=== PATIENT | female | born 1980 | race American Indian/Alaskan Native ===

== ENCOUNTER 2020-11-17 06:51 | Day surgery (SDC) | payer OTHER ==
--- NOTE | 2020-11-16 22:23 | Short Stay Summary ---
Short Stay Documentation Date of service: 11/17/20 Narrative H&P: 40y/o presents with dysfunctional uterine bleeding. 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 the patient has been unresponsive to medical management. Endometrial biopsy was benign. Patient has been reassessed/reevaluated/re-examined. H&P has been reviewed. No interval changes. - History Principal diagnosis: Dysfunctional uterine bleeding Past Medical History: No medical history Past Surgical History: , Other (back surgery; oophorectomy; tubal ligation) Social history: single - Allergies and Medications Current Medications: Allergies No Known Allergies Allergy (Verified 11/09/20 11:12) - Physical exam General appearance: no acute distress Integumentary: no rash HEENT: Atraumatic Lungs: Clear to auscultation Breasts: deferred Heart: Regular rate Gastrointestinal: normal Female Genitourinary: deferred Rectal Exam: deferred Extremities: no ischemia - Brief post op/procedure progress note Date of procedure: 11/17/20 Pre-op diagnosis: Dysfunctional uterine bleeding Post-op diagnosis: same Procedure: Hysteroscopy Endometrial ablation via NovaSure Anesthesia: MAC Surgeon: MARLEE BERG Estimated blood loss: minimal Pathology: none Condition: stable - Hospital course Hospital course: The patient was admitted the day of surgery underwent endometrial ablation. Please see operative note for details of surgery. Postoperative course was uneventful. - Disposition Condition at discharge: Good Disposition: DC-01 TO HOME OR SELFCARE Short Stay Discharge Plan Activity: other (Pelvic rest for 1 week) Diet: regular Additional Instructions: Follow-up with Dr. Berg in 4 weeks Prescriptions: Ibuprofen [Motrin] 800 mg PO Q8HR PRN #30 tablet PRN Reason: Pain , Severe (7-10) HYDROcodone/APAP 5-325 [H[place]hey 5/325] 1 each PO Q6HR PRN #15 tablet PRN Reason: Pain
[2020-11-17] MEDS ORDERED: HYDROmorphone 1 MG/1 ML INJ IV PRN (08:02)
--- NOTE | 2020-11-17 08:03 | Anesthesia Day of Surgery ---
Anesthesia Day of Surgery - Day of Surgery Patient Examined: Yes Patient H&P Reviewed: Yes Patient is NPO: Yes
--- NOTE | 2020-11-17 08:06 | Anesthesia Consultation ---
Anesthesia Consult and Med Hx Date of service: 11/17/20 - Airway Anesthetic Teeth Evaluation: Good, Dentures, Edentulous (Upper) ROM Head & Neck: Adequate (Has posterior cervical fusion-good ROM) Mental/Hyoid Distance: Adequate Mallampati Class: Class II Intubation Access Assessment: Good - Pre-Operative Health Status ASA Pre-Surgery Classification: ASA2 Proposed Anesthetic Plan: General - Pulmonary Hx Smoking: Yes (MJ) Hx Respiratory Symptoms: No (+2FS) - Cardiovascular System Hx Coronary Artery Disease: No (Had ETT 2017; Had CP and was from anxiety) - Central Nervous System Hx Psychiatric Problems: Yes (Anxiety/Depression) - Gastrointestinal Hx Gastroesophageal Reflux Disease: No - Endocrine Hx Non-Insulin Dependent Diabetes: No Hx Thyroid Disease: No - Hematic Hx Sickle Cell Disease: No - Other Systems Hx Substance Use: Yes (MARIJUANA) Hx Cancer: No
[2020-11-17] MEDS ORDERED: ONDANSETRON 4 MG/2 ML INJ IV PRN (08:30)
[2020-11-17] MEDS ORDERED: LACTATED RINGERS 1,000 ML IV SCH (08:30)
[2020-11-17] MEDS ORDERED: MIDAZOLAM 2 MG/2 ML INJ ONE (08:34)
[2020-11-17] MEDS ORDERED: dexAMETHasone 20 MG/5 ML VIAL ONE (08:38)
[2020-11-17] MEDS ORDERED: ONDANSETRON 4 MG/2 ML INJ ONE (08:38)
[2020-11-17] MEDS ORDERED: fentaNYL 100 MCG/2 ML INJ ONE (08:38)
[2020-11-17] MEDS ORDERED: propofoL 200 MG/20 ML VIAL IV ONE (08:38)
[2020-11-17] MEDS ORDERED: LIDOCAINE MPF (2%) 20 MG/1 ML VIAL 5 ML ONE (08:38)
[2020-11-17] MEDS ORDERED: SILVER NITRATE APPLICATOR 1 EA TP ONE (08:42)
[2020-11-17] MEDS ORDERED: SODIUM CHLORIDE 0.9% IRRIG SOLN 2000 ML IR ONE (09:45)
--- NOTE | 2020-11-17 10:03 | Operative Report ---
Operative Report Operative Report: Date of procedure: November 17, 2020 Pre-operative diagnosis: Dysfunctional uterine bleeding Post-operative diagnosis: Same as above Procedure name(s): Hysteroscopy; endometrial ablation via NovaSure Surgeon: Heather Laguna M.D. Shipwright Supervisor: None Anesthesia: MAC Findings normal endometrial cavity Indication: 40-year-old -3-1-4 with a history of dysfunctional uterine bleeding. The place is elected to undergo surgical management. Procedure The patient was taken to the operating room and given general tracheal anesthesia without complication. The patient was prepped and draped in a normal sterile fashion. A bivalve speculum was placed in the patient's vagina single- tooth tenaculums placed on the anterior lip of the cervix. The cervical os was dilated with graduated dilators. A uterine sound was inserted. The hysteroscope was then placed. Insufflation of the uterine cavity was performed with normal saline. Gen. survey of the uterine cavity revealed normal endometrial cavity. The hysteroscope was then removed. The NovaSure device was then inserted. The endometrial length was 6 cm and the uterine width was 4 cm. The device was engaged and it passed the surveillance of the uterine cavity. The NovaSure device was then deployed with a energy of 132 W that lasted for 50 seconds. The NovaSure device was then removed. The hysteroscope was again reinserted. There was evidence of charring of the endometrial surface. The remainder of the vaginal instruments were then removed atraumatically. The patient was then successfully extubated taken to the recovery room. All sponge laps and needle counts were correct 2.
[2020-11-17] MEDS: HYDROmorphone 1 MG/1 ML INJ IV PRN ×2 (10:10→10:20)
[2020-11-17] MEDS ORDERED: KETOROLAC 30 MG/1 ML INJ ONE (10:19)
[2020-11-17] MEDS ORDERED: KETOROLAC 30 MG/1 ML INJ IV ONE (10:25)
[2020-11-17] MEDS ORDERED: HYDROcodone/ACETAMINOPHEN 5-325 MG TAB PO PRN (10:30)
[2020-11-17 10:58] VITALS: BP 133/85
--- NOTE | 2020-11-17 15:42 | Post Anesthesia Evaluation ---
- Post Anesthesia Evaluation Patient Participated: Yes Airway Patent: Yes Stable Respiratory Function: Yes Nausea/Vomiting: No Temp > 96.8F: Yes Pain Manageable: Yes Adequeate Hydration: Yes Anesthesia Complications: No Block Receding Appropriately: Not Applicable Patient on Ventilator: No
== END 2020-11-17 11:30 | disposition home or self-care (01) ==
LOC: OR 06:51
PROVIDERS: ATTEND Obstetrics & Gynecology
DX: N93.8 Other specified abnormal uterine and vaginal bleeding (principal); M19.90 Unspecified osteoarthritis, unspecified site; F32.9 Major depressive disorder, single episode, unspecified; F41.9 Anxiety disorder, unspecified; Z79.899 Other long term (current) drug therapy; Z98.51 Tubal ligation status; Z98.890 Other specified postprocedural states
CPT/HCPCS: 58563; 81025; A4217; J1100; J1170; J1885; J2250; J2405; J2704; J3010; J7120

== ENCOUNTER 2021-04-14 08:17 | Emergency (ER) | payer OTHER ==
--- NOTE | 2021-04-14 09:04 | Event Note ---
ED Screening Note ED Screening Note: 40 YO CO CHEST PAIN/TIGHTNESS AND HEADACHE SINCE YEST AM TOOK OTC MEDS LAST NIGHT NO RELIEF SO COMES TO ER TODAY HEAD HURTS FRONT AND BACK; NO N/V/D NO FEVER OR CHILLS CHEST PAIN DESCRIBED TIGHT CRYING ON EXAM NO SOB DENIES TRAUMA OR FALL PMH MIGRAINES- NOT RECENT NECK SURG IN THE PAST HAS NOVASURE- NO MENSES ANXIETY/DEPRESSION NO DAILY MEDS IS SUPPOSE TO BE ON DEPRESSION AND ANXIETY MEDS BUT IS NOT THC OCCASIONALLY NO PCP MOM AND DAD ALIVE AND WELL This initial assessment/diagnostic orders/clinical plan/treatment(s) is/are subject to change based on patients health status, clinical progression and re- assessment by fellow clinical providers in the ED. Further treatment and workup at subsequent clinical providers discretion. Patient/guardian urged not to elope from the ED as their condition may be serious if not clinically assessed and managed. Initial orders include: LABS XRAY FLUIDS/TORADOL/ZOFRAN
[2021-04-14 09:29] LABS: Bacteria,Urine 1+ /HPF (Negative); Bilirubin,Urine NEG (Negative); Blood,Urine MOD (Negative); Color,Urine Yellow (Yellow); Mucus,Urine 1+ /HPF; Urobilinogen,Urine < 2.0 mg/dL (<2.0)
[2021-04-14] MEDS ORDERED: SODIUM CHLORIDE 0.9% 1000 ML 1,000 ML IV ONE (09:51)
[2021-04-14] MEDS ORDERED: ONDANSETRON 4 MG/2 ML INJ IV ONE (09:51)
[2021-04-14] MEDS ORDERED: KETOROLAC 30 MG/1 ML INJ IV ONE (09:51)
--- NOTE | 2021-04-14 09:58 | XRay Report ---
CHEST 2 VIEWS INDICATION / CLINICAL INFORMATION: Chest Pain. COMPARISON: None available. FINDINGS: SUPPORT DEVICES: None. HEART / MEDIASTINUM: No significant abnormality. LUNGS / PLEURA: No significant pulmonary or pleural abnormality. No pneumothorax. ADDITIONAL FINDINGS: No significant additional findings. IMPRESSION: 1. No acute findings. Signer Name: Rashad Galvez MD Signed: 04/14/2021 9:54 AM Workstation Name: [id number]
[2021-04-14 10:26] LABS: Basophils % (Auto) 0.8 % (0.0-1.8); Eosinophils # (Auto) 0.1 K/mm3 (0.0-0.4); Eosinophils % (Auto) 1.7 % (0.0-4.3); Hemoglobin 14.1 gm/dl (10.1-14.3); Lymphocytes # (Auto) 1.4 K/mm3 (1.2-5.4); Lymphocytes % (Auto) 34.1 % (13.4-35.0); Mean Corpuscular HGB Conc 34 % (30-34); Mean Corpuscular Volume 93 fl (79-97); Monocytes # (Auto) 0.4 K/mm3 (0.0-0.8); Monocytes % (Auto) 9.6 % (0.0-7.3); Platelet Count 317 K/mm3 (140-440); Red Blood Count 4.54 M/mm3 (3.65-5.03); Red Cell Distribution Width 14.9 % (13.2-15.2)
[2021-04-14 10:27] VITALS: BP 141/90
[2021-04-14 11:08] LABS: Alanine Aminotransferase 14 units/L (7-56); Albumin 4.2 g/dL (3.9-5); BUN/Creatinine Ratio 6; Blood Urea Nitrogen 5 mg/dL (7-17); Calcium 9.3 mg/dL (8.4-10.2); Hemolysis Index 31
[2021-04-14] MEDS ORDERED: BUTALB/ACETAMINOPHEN/CAFFEINE TAB PO ONE (11:28)
[2021-04-14] MEDS ORDERED: cefTRIAXone/NS 1 GM/50 ML 1 GM/50 ML BAG IV ONE (11:43)
--- NOTE | 2021-04-14 11:49 | Emergency Department Report ---
ED General Adult HPI - General Chief complaint: Chest Pain Stated complaint: CHEST PAIN,TIGHTNESS,HEADACHE PUI?: No Time Seen by Provider: 04/14/21 08:54 Source: patient Mode of arrival: Ambulatory Limitations: No Limitations - History of Present Illness Initial comments: 40 YO CO CHEST PAIN/TIGHTNESS AND HEADACHE SINCE YEST AM TOOK OTC MEDS LAST NIGHT NO RELIEF SO COMES TO ER TODAY HEAD HURTS FRONT AND BACK; NO N/V/D NO FEVER OR CHILLS NO DIZZINESS POS MALAISE CHEST PAIN DESCRIBED TIGHT - NOTHING MAKES BETTER OR WORSE; REPORTS THAT SHE GETS THIS WHEN ANXIOUS AND SHE STATES SHE DOES NOT FEEL GOOD AND THIS IS MAKING HER ANXIOUS NO SOB AMBULATORY AND IN NAD ON ARRIVAL TO TRIAGE CRYING ON EXAM ASKING FOR PAIN MEDICATIONS DENIES TRAUMA OR FALL PMH MIGRAINES- NOT RECENTLY NECK SURG IN THE PAST HAS NOVASURE- NO MENSES ANXIETY/DEPRESSION NO DAILY MEDS AT HOME IS SUPPOSE TO BE ON DEPRESSION AND ANXIETY MEDS BUT IS NOT THC OCCASIONALLY NO PCP MOM AND DAD ALIVE AND WELL -: Gradual, days(s) Location: head, chest Radiation: non-radiation Severity scale (0 -10): 10 Quality: constant Improves with: none Worsens with: none Associated Symptoms: chest pain, headaches, malaise. denies: confusion, cough, diaphoresis, fever/chills, loss of appetite, nausea/vomiting, rash, seizure, shortness of breath, syncope, weakness Treatments Prior to Arrival: NSAID - Related Data Previous Rx's Medication Instructions Recorded Last Taken Type Butalb/Acetaminophen/Caffeine 1 cap PO Q6HR PRN #12 cap 04/14/21 Unknown Rx [Fioricet 50-300-40 mg CAP] Fluconazole [Diflucan TAB] 100 mg PO QDAY #1 tablet 04/14/21 Unknown Rx Ibuprofen [Motrin] 800 mg PO Q8HR PRN #30 tablet 04/14/21 Unknown Rx Sulfamethoxazole/Trimethoprim 1 each PO BID #10 tablet 04/14/21 Unknown Rx [Bactrim DS TAB] Allergies Allergy/AdvReac Type Severity Reaction Status Date / Time No Known Allergies Allergy Verified 11/09/20 11:12 ED Review of Systems ROS: Stated complaint: CHEST PAIN,TIGHTNESS,HEADACHE Other details as noted in HPI Comment: All other systems reviewed and negative Constitutional: see HPI Respiratory: no symptoms reported Cardiovascular: as per HPI Genitourinary: denies: urgency, dysuria, frequency, hematuria, discharge, abnormal menses, dyspareunia Neurological: as per HPI, headache ED Past Medical Hx - Past Medical History Previous Medical History?: Yes Hx Sickle Cell Disease: No Hx Arthritis: Yes (BOTH KNEE'S) Hx Psychiatric Treatment: Yes (depression anxiety) Additional medical history: migraines - Surgical History Past Surgical History?: Yes Additional Surgical History: tubal ligation, - Family History Family history: no significant - Social History Smoking Status: Never Smoker Substance Use Type: None - Medications Home Medications: Home Medications Medication Instructions Recorded Confirmed Last Taken Type Butalb/Acetaminophen/Caffeine 1 cap PO Q6HR PRN #12 cap 04/14/21 Unknown Rx [Fioricet 50-300-40 mg CAP] Fluconazole [Diflucan TAB] 100 mg PO QDAY #1 tablet 04/14/21 Unknown Rx Ibuprofen [Motrin] 800 mg PO Q8HR PRN #30 tablet 04/14/21 Unknown Rx Sulfamethoxazole/Trimethoprim 1 each PO BID #10 tablet 04/14/21 Unknown Rx [Bactrim DS TAB] ED Physical Exam - General Limitations: No Limitations General appearance: alert, in no apparent distress - Head Head exam: Present: atraumatic, normocephalic - Eye Eye exam: Present: normal appearance - ENT ENT exam: Present: mucous membranes moist - Neck Neck exam: Present: normal inspection - Respiratory Respiratory exam: Present: normal lung sounds bilaterally. Absent: respiratory distress - Cardiovascular Cardiovascular Exam: Present: regular rate, normal rhythm. Absent: systolic murmur, diastolic murmur, rubs, gallop - GI/Abdominal GI/Abdominal exam: Present: soft, normal bowel sounds - Extremities Exam Extremities exam: Present: normal inspection - Back Exam Back exam: Present: normal inspection - Neurological Exam Neurological exam: Present: alert, oriented X3 - Psychiatric Psychiatric exam: Present: normal affect, normal mood - Skin Skin exam: Present: warm, dry, intact, normal color. Absent: rash ED Course Vital Signs 04/14/21 04/14/21 08:34 10:23 Temperature 98.2 F 98.5 F Pulse Rate 89 78 Respiratory 20 16 Rate Blood Pressure 150/94 141/90 O2 Sat by Pulse 100 100 Oximetry - Reevaluation(s) Reevaluation #1: 04/14/21 1130 NAD WHILE WAITING IN [facility] TAKING PO ED Medical Decision Making - Lab Data Result diagrams: 04/14/21 09:41 04/14/21 09:41 - EKG Data EKG shows normal: sinus rhythm Rate: normal - EKG Data When compared to previous EKG there are: no significant change Interpretation: no acute changes - Radiology Data Radiology results: report reviewed, image reviewed NAP - Medical Decision Making Labs 04/14/21 04/14/21 04/14/21 09:41 09:41 Unknown WBC 4.1 L RBC 4.54 Hgb 14.1 Hct 42.0 MCV 93 MCH 31 MCHC 34 RDW 14.9 Plt Count 317 Lymph % (Auto) 34.1 King % (Auto) 9.6 H Eos % (Auto) 1.7 Baso % (Auto) 0.8 Lymph # (Auto) 1.4 King # (Auto) 0.4 Eos # (Auto) 0.1 Baso # (Auto) 0.0 Seg Neutrophils % 53.8 Seg Neutrophils # 2.2 Sodium 141 Potassium 3.9 Chloride 105.4 Carbon Dioxide 24 Anion Gap 16 BUN 5 L Creatinine 0.9 Estimated GFR > 60 BUN/Creatinine Ratio 6 Glucose 67 Calcium 9.3 Total Bilirubin 0.50 AST 19 ALT 14 Alkaline Phosphatase 52 Troponin T < 0.010 Total Protein 8.6 H Albumin 4.2 Albumin/Globulin Ratio 1.0 Urine Color Yellow Urine Turbidity Slightly-cloudy Urine pH 7.0 Ur Specific [place] 1.015 Urine Protein 30 mg/dl Urine Glucose (UA) Neg Urine Ketones Neg Urine Blood Mod Urine Nitrite Pos Urine Bilirubin Neg Urine Urobilinogen < 2.0 Ur Leukocyte Esterase Tr Urine WBC (Auto) 15.0 H Urine RBC (Auto) 5.0 U Epithel Cells (Auto) 9.0 Urine Bacteria (Auto) 1+ Urine Mucus 1+ Urine Yeast (Budding) 1+ Vital Signs 04/14/21 04/14/21 08:34 10:23 Temperature 98.2 F 98.5 F Pulse Rate 89 78 Respiratory 20 16 Rate Blood Pressure 150/94 141/90 O2 Sat by Pulse 100 100 Oximetry MEDICATED WITH 1L NS/TORADOL AND ZOFRAN BUT PT STATES HEADACHE ONLY A LITTLE BETTER; DENIES CHEST PAIN ASKING FOR PAIN MEDICATION FIORICET FOR HEADACHE UA REFLEX TO CULTURE ROCEPHIN 1 GM IV GIVEN ON REEXAM -DENIES ABD PAIN; NO BACK PAIN; NO DYSURIA; NO VAG D/C LABS NOTED TROP NEG WBC NORMAL CR NORMAL 12 LEAD NAP CHEST XRAY NAP ON DC PT REPORTS FEELING BETTER; TAKING PO; AND NAD DC HOME WITH DC PLAN OF CARE INCLUDING MEDS, DIET, ACTIVITY AND FOLLOW UP- PT VERBALIZES UNDERSTANDING OF PLAN OF CARE - Differential Diagnosis MIGRAINE; VIRAL / BACTERIAL ILLNESS Critical care attestation.: If time is entered above; I have spent that time in minutes in the direct care of this critically ill patient, excluding procedure time. ED Disposition Clinical Impression: Headache, UTI (urinary tract infection) Disposition: HOME / SELF CARE / HOMELESS Is pt being admited?: No Does the pt Need Aspirin: No Condition: Stable Instructions: Urinary Tract Infection, Adult, [id number] Additional Instructions: FOLLOW UP WITH PCP LOCAL REFERRAL BELOW MEDS ORDERED STAY WELL HYDRATED WITH WATER ACTIVITY AND DIET TOLERATED MOTRIN OR TYLENOL MAY BE USED WITH MEDS GIVEN TODAY Prescriptions: Sulfamethoxazole/Trimethoprim [Bactrim DS TAB] 1 each PO BID #10 tablet Fluconazole [Diflucan TAB] 100 mg PO QDAY #1 tablet Butalb/Acetaminophen/Caffeine [Fioricet 50-300-40 mg CAP] 1 cap PO Q6HR PRN #12 cap PRN Reason: Headache Ibuprofen [Motrin] 800 mg PO Q8HR PRN #30 tablet PRN Reason: Pain, Moderate (4-6) Referrals: SALMA BURROWS MD [Primary Care Provider] - 3-5 Days RENETTA HERNANDES MD [Staff Physician] - 3-5 Days Forms: Work/School Release Form(ED) Time of Disposition: 11:47
[2021-04-14] MEDS ORDERED: ACETAMINOPHEN 500 MG TAB PO ONE (12:18)
--- NOTE | 2021-04-15 13:29 | Electrocardiograph Report ---
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
== END 2021-04-14 12:28 | disposition home or self-care (01) ==
LOC: ED 08:17
DX: N39.0 Urinary tract infection, site not specified (principal); G43.909 Migraine, unspecified, not intractable, without status migrainosus; M19.90 Unspecified osteoarthritis, unspecified site; F41.8 Other specified anxiety disorders; F32.9 Major depressive disorder, single episode, unspecified
CPT/HCPCS: 36415; 71046; 80053; 81001; 84484; 85025; 87076; 87086; 87186; 93005; 96361; 96365; 96375; 99284; J0696; J1885; J2405; J7030

== ENCOUNTER 2021-12-11 22:00 | Emergency (ER) | payer SELFPAY | END 2021-12-12 02:40 | disposition left against medical advice (07) | LOC: ED 22:00 | DX: R51.9 Headache, unspecified (principal); R11.2 Nausea with vomiting, unspecified; Z53.21 Procedure and treatment not carried out due to patient leaving prior to being seen by health care provider ==

== ENCOUNTER 2022-01-23 14:32 | Emergency (ER) | payer SELFPAY ==
[2022-01-23 15:23] VITALS: BP 136/83
== END 2022-01-23 20:43 | disposition left against medical advice (07) ==
LOC: ED 14:32
DX: M79.605 Pain in left leg (principal); Z53.21 Procedure and treatment not carried out due to patient leaving prior to being seen by health care provider